=== PATIENT | female | born 1995 | race Caucasian/White ===

== ENCOUNTER 2021-03-09 13:38 | Inpatient (IN) ==
[2021-03-09] MEDS ORDERED: Metoclopramide 10 MG/2 ML VIAL IVP PRN (13:46)
[2021-03-09] MEDS ORDERED: Penicillin G Potassium 5,000,000 UNIT in 0.9 % Sodium Chloride Mini Bag 100 ML IVPB ONE (13:46)
[2021-03-09] MEDS ORDERED: Ondansetron 4 MG/2 ML VIAL IVP PRN (13:46)
[2021-03-09] MEDS ORDERED: Famotidine 20 MG/2 ML VIAL IVP PRN (13:46)
[2021-03-09] MEDS ORDERED: Naloxone 0.4 MG/ML INJ IVP PRN (13:46)
[2021-03-09] MEDS ORDERED: *HR* FentaNYL (PF) 100 MCG/2 ML VIAL IVP PRN (13:46)
[2021-03-09] MEDS ORDERED: Azithromycin 500 MG in 0.9 % Sodium Chloride 250 ML IVPB SCH (14:00)
[2021-03-09] MEDS ORDERED: Ringers Solution, Lactated 1,000 ML IVC SCH (14:00)
[2021-03-09] MEDS ORDERED: Lidocaine -MPF 2% 5 ML VIAL ONE (15:02)
[2021-03-09 15:33] LABS: Basophils # 0.1 K/mcL (0.0-0.2); Basophils % 0.3 %; Eosinophils # 0.3 K/mcL (0.0-0.6); Eosinophils % 1.5 %; Hematocrit 33.4 % (35.3-44.9); Hemoglobin 10.9 g/dL (11.5-15.4); Immature Granulocytes % 1.1 % (0-4); Lymphocytes # 4.2 K/mcL (0.6-4.6); Mean Corpuscular HGB Conc 32.6 g/dL (31.6-35.5); Mean Corpuscular Hemoglobin 32.1 pg (28.0-33.3); Mean Corpuscular Volume 98.2 fL (83.0-100.0); Mean Platelet Volume 9.9 fL (9.4-12.4); Monocytes # 1.1 K/mcL (0.0-1.3); Monocytes % 6.5 %; Neutrophils # 11.1 K/mcL (1.6-8.9); Platelet Count 342 K/mcL (140-400); Red Cell Distribution Width 13.7 % (11.5-14.5); Segmented Neutrophils % 65.6 %; White Blood Count 16.9 K/mcL (4.3-11.1)
[2021-03-09 15:42] LABS: Creatinine,Urine 86 mg/dL; Protein/Creatinine Ratio,Urine 0.28 mg/mg (0.00-0.20)
[2021-03-09 15:45] LABS: Amphetamine Screen,Urine Negative ng/mL (Cutoff=1000); Barbiturate Screen,Urine Negative ng/mL (Cutoff=200); Benzodiazepines Screen,Urine Negative ng/mL (Cutoff=200); Cannabinoid Screen,Urine Positive ng/mL (Cutoff = 50); Cocaine Screen,Urine Negative ng/mL (Cutoff= 300); Opiate Screen,Urine Negative ng/mL (Cutoff=300); Phencyclidine Screen,Urine Negative ng/mL (Cutoff=25)
[2021-03-09 15:53] LABS: Alanine Aminotransferase 9 Units/L (7-52); Aspartate Amino Transferase 18 Units/L (13-39); BUN/Creatinine Ratio 12 (6-26); Blood Urea Nitrogen 6 mg/dL (6-20); Lactate Dehydrogenase 152 Units/L (140-271); eGFR For African Americans > 60 (> 60); eGFR For Non-African Americans > 60 (> 60)
[2021-03-09 16:18] LABS: Platelet Estimate Normal (Normal); Reactive Lymphocytes Present (Not Present)
[2021-03-09] MEDS ORDERED: EPHEDrine 50 MG/ML VIAL IVP PRN (17:01)
[2021-03-09] MEDS ORDERED: Ropivacaine/PF 0.2% 20 ML VIAL EP ONE (17:01)
[2021-03-09] MEDS ORDERED: *HR* FentaNYL (PF) 100 MCG/2 ML VIAL EP ONE (17:01)
[2021-03-09] MEDS ORDERED: Oxytocin 20 units/ LR 1000 mL 20 UNIT/1,000 ML BAG IVC SCH (17:15)
[2021-03-09] MEDS ORDERED: Epidural Premix (fent/bupiv) 110 ML EP SCH (17:15)
[2021-03-09] MEDS ORDERED: Penicillin G Potassium 2,500,000 UNIT in 0.9 % Sodium Chloride 100 ML IVPB SCH (18:00)
[2021-03-10] MEDS ORDERED: Benzocaine/Menthol 56 GM AEROSOL SPRAY TP PRN (02:39)
[2021-03-10] MEDS ORDERED: Ondansetron ODT 4 MG TAB.RAPDIS SL PRN (02:39)
[2021-03-10] MEDS ORDERED: Oxytocin 20 units/ LR 1000 mL 20 UNIT/1,000 ML BAG IVC ONE (02:39)
[2021-03-10] MEDS ORDERED: *HR* OxyCODONE Immed Rel 5 MG TABLET PO PRN (02:39)
[2021-03-10] MEDS ORDERED: Oxytocin 20 units/ LR 1000 mL 20 UNIT/1,000 ML BAG IVC SCH (02:39)
[2021-03-10] MEDS ORDERED: Lanolin 7 G OINT...G. TP PRN (02:39)
[2021-03-10] MEDS: Ibuprofen 600 MG TABLET PO SCH ×3 (03:54→16:58)
[2021-03-10] MEDS: Acetaminophen 325 MG TABLET PO SCH ×3 (03:54→16:58)
[2021-03-10 07:14] VITALS: TEMP 98.1
[2021-03-10] MEDS ORDERED: Prenatal Vit/FA 1 EACH TABLET PO SCH (09:00)
[2021-03-10] MEDS ORDERED: *HR* Buprenorphine HCl 8 MG TAB.SUBL SL SCH (09:00)
[2021-03-10 21:09] VITALS: PULSE 90; O2SAT 100
[2021-03-10 21:10] VITALS: BP 135/91
== END 2021-03-10 21:57 | disposition home or self-care (01) | DRG 560 ==
LOC: 1NENULAB 13:38 → 1NENUOBS 03-10 02:39 → UNDODISIN 03-10 18:44
PROVIDERS: ADMIT Obstetrics & Gynecology; ATTEND Obstetrics & Gynecology